=== PATIENT | female | born 1990 | race Caucasian/White ===

== ENCOUNTER 2022-02-28 13:32 | Emergency (ER) | payer MEDICAID ==
[~2022-02-28] VITALS: Ht 157.5 cm; Wt 147.7 kg
[2022-02-28 13:44] VITALS: BP 149/72
[2022-02-28 14:27] LABS: BASO # 0.1 10^3/uL (0.0-0.2); BASO % 0.5 % (0.0-1.0); EOS # 0.5 10^3/uL (0.0-0.5); EOS % 5.3 % (0.0-3.0); HEMOGLOBIN 13.7 g/dl (12.0-15.5); LYMPH # 2.3 10^3/uL (1.5-5.0); LYMPH % 23.3 % (24.0-44.0); MEAN CORPUSCULAR HEMOGLOBIN 28.5 pg (27.0-33.0); MEAN CORPUSCULAR HGB CONC 32.6 g/dl (32.0-36.5); MEAN CORPUSCULAR VOLUME 87.5 fl (80.0-96.0); MONO # 0.6 10^3/uL (0.0-0.8); MONO % 5.9 % (2.0-8.0); NEUTROPHILS # 6.5 10^3/uL (1.5-8.5); NEUTROPHILS % 64.6 % (36.0-66.0); PLATELET COUNT, AUTOMATED 322 10^3/uL (150-450)
[2022-02-28 14:52] LABS: HCG, SERUM QUALITATIVE NEGATIVE (NEGATIVE)
[2022-02-28 15:12] LABS: ALBUMIN 3.2 GM/DL (3.2-5.2); ALT/SGPT 53 U/L (12-78); BILIRUBIN,DIRECT < 0.1 MG/DL (0.0-0.2); BILIRUBIN,TOTAL 0.2 MG/DL (0.2-1.0); BLOOD UREA NITROGEN 14 MG/DL (7-18); CALCIUM LEVEL 9.2 MG/DL (8.5-10.1); CARBON DIOXIDE LEVEL 27 MEQ/L (21-32); CHLORIDE LEVEL 105 MEQ/L (98-107); CREATININE FOR GFR 0.82 MG/DL (0.55-1.30); GLOMERULAR FILTRATION RATE > 60.0 (>60); GLUCOSE, FASTING 162 MG/DL (70-100); LIPASE 132 U/L (73-393); POTASSIUM SERUM 4.6 MEQ/L (3.5-5.1); SODIUM LEVEL 135 MEQ/L (136-145); TOTAL PROTEIN 7.3 GM/DL (6.4-8.2)
== END 2022-02-28 16:34 | disposition home or self-care (01) ==
LOC: M ED 13:32
DX: R19.7 Diarrhea, unspecified (principal); J45.909 Unspecified asthma, uncomplicated; Z88.0 Allergy status to penicillin; Z91.018 Allergy to other foods

== ENCOUNTER → 2022-08-16 | Outpatient (CLI) | payer MEDICAID ==
[2022-08-16 13:36] LABS: BASO # 0.1 10^3/uL (0.0-0.2); BASO % 0.8 % (0.0-1.0); EOS # 0.4 10^3/uL (0.0-0.5); EOS % 6.6 % (0.0-3.0); HEMATOCRIT 46.6 % (36.0-47.0); HEMOGLOBIN 14.8 g/dl (12.0-15.5); LYMPH # 2.1 10^3/uL (1.5-5.0); LYMPH % 32.5 % (24.0-44.0); MEAN CORPUSCULAR HEMOGLOBIN 27.7 pg (27.0-33.0); MEAN CORPUSCULAR HGB CONC 31.8 g/dl (32.0-36.5); MEAN CORPUSCULAR VOLUME 87.3 fl (80.0-96.0); MONO # 0.5 10^3/uL (0.0-0.8); MONO % 6.9 % (2.0-8.0); NEUTROPHILS # 3.5 10^3/uL (1.5-8.5); NEUTROPHILS % 52.9 % (36.0-66.0); PLATELET COUNT, AUTOMATED 121 10^3/uL (150-450); RED BLOOD COUNT 5.34 10^6/uL (4.00-5.40); WHITE BLOOD COUNT 6.6 10^3/uL (4.0-10.0)
[2022-08-16 13:53] LABS: TOTAL 25(OH) VITAMIN D 31.9 NG/ML (20.0-100.0)
[2022-08-16 14:05] LABS: ALBUMIN 3.2 G/DL (3.2-5.2); ALKALINE PHOSPHATASE 135 U/L (46-116); ALT/SGPT 56 U/L (7.0-40); AST/SGOT 43 U/L (<34); BILIRUBIN,TOTAL 0.2 MG/DL (0.3-1.2); BLOOD UREA NITROGEN 17 MG/DL (9-23); CARBON DIOXIDE LEVEL 24 MMOL/L (20-31); CHLORIDE LEVEL 98 MMOL/L (98-107); CHOLESTEROL LEVEL 214 MG/DL (<200); CHOLESTEROL RISK RATIO 5.39 (<5); CREATININE FOR GFR 0.63 MG/DL (0.55-1.30); GLOMERULAR FILTRATION RATE > 60.0 (>60); GLUCOSE, FASTING 580 MG/DL (60-100); HDL CHOLESTEROL 39.7 MG/DL (>40); LDL CHOLESTEROL 104.9 MG/DL (<100); NON-HDL-C 174 MG/DL; POTASSIUM SERUM 5.4 MMOL/L (3.5-5.1); SODIUM LEVEL 132 MMOL/L (136-145); TOTAL PROTEIN 6.8 G/DL (5.7-8.2); TRIGLYCERIDES LEVEL 347 MG/DL (<150)
[2022-08-16 14:25] LABS: HEMOGLOBIN A1c 13.4 % (4.0-6.0)
== END ==
LOC: M PLALAB 11:42
PROVIDERS: ATTEND Physician Assistant
DX: Z13.29 Encounter for screening for other suspected endocrine disorder (principal); Z13.220 Encounter for screening for lipoid disorders; E66.01 Morbid (severe) obesity due to excess calories; T78.1XXA Other adverse food reactions, not elsewhere classified, initial encounter

== ENCOUNTER 2023-04-20 09:01 | Emergency (ER) | payer MEDICAID ==
[~2023-04-20] VITALS: Ht 157.5 cm; Wt 137.4 kg
[2023-04-20] MEDS ORDERED: LANTINJ4 SC (09:25)
[2023-04-20] MEDS ORDERED: ALBU2.5V10 NEB (09:25)
[2023-04-20] MEDS ORDERED: METF500T13 PO (09:25)
[2023-04-20 12:30] VITALS: BP 142/77; TEMP 97.7; O2SAT 98
== END 2023-04-20 12:30 | disposition home or self-care (01) ==
LOC: M ED 09:01
DX: M25.562 Pain in left knee (principal); E11.9 Type 2 diabetes mellitus without complications; J45.909 Unspecified asthma, uncomplicated; E66.01 Morbid (severe) obesity due to excess calories; Z88.0 Allergy status to penicillin; Z88.8 Allergy status to other drugs, medicaments and biological substances

== ENCOUNTER 2024-01-20 18:20 | Emergency (ER) | payer MEDICAID ==
[~2024-01-20] VITALS: Ht 157.5 cm; Wt 134.1 kg
[~2024-01-20 18:20] MED LIST: ALBU2.5V10 NEB; LANTINJ4 SC; METF500T13 PO
[2024-01-20 18:30] VITALS: BP 123/82; TEMP 97.6; O2SAT 96
[2024-01-20 19:12] LABS: VENOUS BASE EXCESS -0.4 (-2.0-2.0); VENOUS HCO3 25.5 MMOL/L (23.0-27.0); VENOUS O2 SATURATION 67.1 % (60.0-80.0); VENOUS PARTIAL PRESSURE CO2 46.2 mmHg (38.0-50.0); VENOUS PARTIAL PRESSURE O2 36.2 mmHg (30.0-50.0); VENOUS STANDARD HCO3 23.3 MMOL/L; VENOUS TOTAL CO2 26.9 MMOL/L (24.0-28.0)
[2024-01-20 19:16] LABS: BASO # 0.1 10^3/uL (0.0-0.2); BASO % 0.6 % (0.0-1.0); EOS # 0.5 10^3/uL (0.0-0.5); EOS % 4.7 % (0.0-3.0); HEMATOCRIT 46.2 % (36.0-47.0); HEMOGLOBIN 15.3 g/dl (12.0-15.5); LYMPH # 3.4 10^3/uL (1.5-5.0); LYMPH % 29.9 % (24.0-44.0); MEAN CORPUSCULAR HEMOGLOBIN 28.9 pg (27.0-33.0); MEAN CORPUSCULAR HGB CONC 33.1 g/dl (32.0-36.5); MEAN CORPUSCULAR VOLUME 87.3 fl (80.0-96.0); MONO # 0.5 10^3/uL (0.0-0.8); MONO % 4.7 % (2.0-8.0); NEUTROPHILS # 6.8 10^3/uL (1.5-8.5); NEUTROPHILS % 59.8 % (36.0-66.0); PLATELET COUNT, AUTOMATED 322 10^3/uL (150-450); RED BLOOD COUNT 5.29 10^6/uL (4.00-5.40); WHITE BLOOD COUNT 11.4 10^3/uL (4.0-10.0)
[2024-01-20 19:39] LABS: ALBUMIN 3.7 G/DL (3.2-5.2); ALKALINE PHOSPHATASE 121 U/L (46-116); ALT/SGPT 37 U/L (7.0-40); AST/SGOT 20 U/L (<34); BILIRUBIN,DIRECT < 0.1 MG/DL (<0.4); BILIRUBIN,TOTAL 0.3 MG/DL (0.3-1.2); BLOOD UREA NITROGEN 15 MG/DL (9-23); CALCIUM LEVEL 9.7 MG/DL (8.5-10.1); CARBON DIOXIDE LEVEL 25 MMOL/L (20-31); CHLORIDE LEVEL 104 MMOL/L (98-107); CREATININE FOR GFR 0.69 MG/DL (0.55-1.30); GLOMERULAR FILTRATION RATE > 60.0 (>60); GLUCOSE, FASTING 276 MG/DL (60-100); POTASSIUM SERUM 4.8 MMOL/L (3.5-5.1); SODIUM LEVEL 136 MMOL/L (136-145); TOTAL PROTEIN 7.8 G/DL (5.7-8.2)
== END 2024-01-20 20:28 | disposition home or self-care (01) ==
LOC: M ED 18:20
DX: E11.65 Type 2 diabetes mellitus with hyperglycemia (principal); J45.909 Unspecified asthma, uncomplicated; F79 Unspecified intellectual disabilities; Z88.0 Allergy status to penicillin; Z91.013 Allergy to seafood; Z79.51 Long term (current) use of inhaled steroids; Z79.4 Long term (current) use of insulin

== ENCOUNTER 2024-05-31 10:26 | Emergency (ER) | payer MEDICAID ==
[~2024-05-31] VITALS: Ht 157.5 cm; Wt 135.6 kg
[2024-05-31 12:02] VITALS: BP 124/77; TEMP 97.9; O2SAT 100
== END 2024-05-31 12:04 | disposition home or self-care (01) ==
LOC: M ED 10:26
DX: S63.501A Unspecified sprain of right wrist, initial encounter (principal); Y92.9 Unspecified place or not applicable; Y93.9 Activity, unspecified; Y99.9 Unspecified external cause status; E11.9 Type 2 diabetes mellitus without complications; J45.909 Unspecified asthma, uncomplicated; Z88.0 Allergy status to penicillin; Z91.018 Allergy to other foods; Z79.4 Long term (current) use of insulin; Z79.51 Long term (current) use of inhaled steroids

== ENCOUNTER 2024-08-08 18:00 | Emergency (ER) | payer MEDICAID ==
[~2024-08-08] VITALS: Ht 157.5 cm; Wt 134.6 kg
[2024-08-08 20:40] VITALS: BP 146/83; TEMP 98.1; O2SAT 95
== END 2024-08-08 20:42 | disposition home or self-care (01) ==
LOC: M ED 18:00 → EDBD 18:00 → M ED 20:42
DX: S93.401A Sprain of unspecified ligament of right ankle, initial encounter (principal); Y92.9 Unspecified place or not applicable; Y93.9 Activity, unspecified; Y99.9 Unspecified external cause status; E11.9 Type 2 diabetes mellitus without complications; Z88.0 Allergy status to penicillin; Z91.018 Allergy to other foods; Z79.4 Long term (current) use of insulin; Z79.51 Long term (current) use of inhaled steroids

== ENCOUNTER 2024-08-20 08:08 | Emergency (ER) | payer MEDICAID ==
[~2024-08-20] VITALS: Ht 157.5 cm; Wt 136.4 kg
[2024-08-20 09:17] LABS: BASO % 0.2 % (0.0-1.0); EOS # 0.1 10^3/uL (0.0-0.5); EOS % 0.7 % (0.0-3.0); HEMOGLOBIN 14.9 g/dl (12.0-15.5); LYMPH # 0.6 10^3/uL (1.5-5.0); LYMPH % 6.3 % (24.0-44.0); MEAN CORPUSCULAR HEMOGLOBIN 28.4 pg (27.0-33.0); MEAN CORPUSCULAR HGB CONC 33.1 g/dl (32.0-36.5); MEAN CORPUSCULAR VOLUME 85.7 fl (80.0-96.0); MONO # 0.4 10^3/uL (0.0-0.8); MONO % 4.4 % (2.0-8.0); NEUTROPHILS # 8.5 10^3/uL (1.5-8.5); RED BLOOD COUNT 5.25 10^6/uL (4.00-5.40); WHITE BLOOD COUNT 9.6 10^3/uL (4.0-10.0)
[2024-08-20] MEDS: NS (Normal Saline) 0.9% 1,000 ML IV ONE ×2 (09:37→11:50)
[2024-08-20] MEDS: ONDANSETRON 4MG 2ML VIAL IV ONE (09:37)
[2024-08-20 09:45] LABS: HCG, SERUM QUALITATIVE NEGATIVE (NEGATIVE); LIPASE 25 U/L (12-53)
[2024-08-20 09:47] LABS: ACETONE/KETONE 0.23 MMOL/L (0.02-0.27); ALBUMIN 3.3 G/DL (3.2-5.2); ALKALINE PHOSPHATASE 108 U/L (35-104); ALT/SGPT 31 U/L (7.0-40); AST/SGOT 30 U/L (<34); BILIRUBIN,DIRECT 0.1 MG/DL (<0.4); BILIRUBIN,TOTAL 0.5 MG/DL (0.3-1.2); BLOOD UREA NITROGEN 15 MG/DL (9-23); CALCIUM LEVEL 8.8 MG/DL (8.5-10.1); CARBON DIOXIDE LEVEL 21 MMOL/L (20-31); CHLORIDE LEVEL 101 MMOL/L (98-107); CREATININE FOR GFR 0.56 MG/DL (0.55-1.30); GLOMERULAR FILTRATION RATE > 60.0 (>60); GLUCOSE, FASTING 304 MG/DL (60-100); SODIUM LEVEL 135 MMOL/L (136-145); TOTAL PROTEIN 7.3 G/DL (5.7-8.2)
[2024-08-20 09:55] LABS: VENOUS BASE EXCESS -2.3 (-2.0-2.0); VENOUS HCO3 20.6 MMOL/L (23.0-27.0); VENOUS PARTIAL PRESSURE O2 56.5 mmHg (30.0-50.0); VENOUS PH 7.441 UNITS (7.330-7.430); VENOUS STANDARD HCO3 22.4 MMOL/L; VENOUS TOTAL CO2 21.6 MMOL/L (24.0-28.0)
[2024-08-20 10:06] LABS: OSMOLALITY SERUM 295 MOSM/KG (275-295)
[2024-08-20 10:24] LABS: HEMOGLOBIN A1c 8.4 % (4.0-6.0)
[2024-08-20 11:19] LABS: KETONE, URINE AUTO RFX TRACE mg/dL (NEGATIVE); LEUKOCYTE ESTERASE UR AUTO RFX 1+ (NEGATIVE); MUCUS, URINE RFX SMALL (NEGATIVE); NITRITE, URINE AUTO RFX NEGATIVE (NEGATIVE); RBC, URINE AUTO RFX 1 /HPF (0-3); SQUAM EPITHELIAL CELL UR AURFX 5 /HPF (0-6); WBC, URINE AUTO RFX 6 /HPF (0-3)
[2024-08-20] MEDS ORDERED: ONDA-282 PO (12:57)
[2024-08-20 13:00] VITALS: BP 127/61; TEMP 98.2
[2024-08-20 13:15] VITALS: O2SAT 90
== END 2024-08-20 13:20 | disposition home or self-care (01) ==
LOC: EDBD 08:08 → M ED 08:08
DX: E11.9 Type 2 diabetes mellitus without complications (principal); U07.1 COVID-19; Z88.0 Allergy status to penicillin; Z88.8 Allergy status to other drugs, medicaments and biological substances; Z79.51 Long term (current) use of inhaled steroids; Z79.4 Long term (current) use of insulin; Z79.899 Other long term (current) drug therapy
CPT/HCPCS: 80047; 80048; 80076; 81001; 82010; 82803; 83036; 83690; 83930; 84703; 85025; 87086; 87486; 87581; 87633; 87798; 93041; 94760; 96361; 96374; 99285; J2405